=== PATIENT | male | born 1960 | race Caucasian/White ===

== ENCOUNTER 2022-09-13 07:08 | Day surgery (SDC) | payer OTHER ==
[~2022-09-13] VITALS: Ht 177.8 cm; Wt 99.8 kg
[~2022-09-13 07:08] MED LIST: ALLOPURINOL100 MG PO; ALLOPURINOL300 MG PO; ALTACE1.25 MG PO; ALTACE10 M1 PO; CLOPIDOGREL75 MG PO; FENOFIBRATE134 MG PO; FLOMAX0.4 M1 PO; KAPSPARGO SPRIN50 MG; MELOXICAM7.5 MG PO; METOPROL TAR50 MG PO; METOPROLOL TART50 MG PO; MOBIC7.5 MG PO; NIACIN ER1000 MG PO; NIACIN TR1000 MG PO; PLAVIX75 MG PO; TRIAMCINOLON0.11 EX; TRIAMCINOLON0.12 EX; TRICOR145 MG PO; ZETIA10 MG PO; ZPAK PO; [UNRECOGNIZED DRUG - OTHER] PO
[2022-09-13 09:47] VITALS: BP 99/71
== END 2022-09-13 09:42 | disposition home or self-care (01) | DRG 951 ==
LOC: ENDO 07:08 → ORM 08:45 → ENDO 09:42
PROVIDERS: ATTEND Surgery
PROC: 0DJD8ZZ Inspection of Lower Intestinal Tract, Via Natural or Artificial Opening Endoscopic (ICD-10-PCS; principal; 2022-09-13)
DX: Z12.11 Encounter for screening for malignant neoplasm of colon (principal); I10 Essential (primary) hypertension; I25.10 Atherosclerotic heart disease of native coronary artery without angina pectoris; E78.5 Hyperlipidemia, unspecified; M10.9 Gout, unspecified; Z86.010 Personal history of colon polyps; Z95.5 Presence of coronary angioplasty implant and graft

== ENCOUNTER 2024-11-06 02:42 | Emergency (ER) | payer MEDICARE ==
[~2024-11-06] VITALS: Ht 177.8 cm; Wt 85.0 kg
[2024-11-06] MEDS ORDERED: FAMOTIDINE 10MG/ML 2ML SDV IV ONE (03:00)
[2024-11-06] MEDS ORDERED: ONDANSETRON HCl 4 MG/2 ML SDV IV ONE (03:00)
[2024-11-06] MEDS ORDERED: KETOROLAC TROMETHAMINE 15 MG/ML SDV IV ONE (03:00)
[2024-11-06] MEDS ORDERED: DICYCLOMINE HCL 20 MG/2 ML VIAL IM ONE ×2 (03:00→04:25)
[2024-11-06 03:02] VITALS: BP 157/92
[2024-11-06] MEDS ORDERED: KETOROLAC TROMETHAMINE 30 MG/ML SDV IM ONE ×2 (03:10→04:25)
[2024-11-06] MEDS ORDERED: ONDANSETRON 4 MG/TAB ODT PO ONE (03:10)
[2024-11-06] MEDS ORDERED: FAMOTIDINE 20 MG/TAB PO ONE (03:10)
[2024-11-06 03:26] LABS: BASO% 0.4 % (0-3); EOS% 3.2 % (0-8); HEMATOCRIT 45.8 % (39.0-50.0); HEMOGLOBIN 15.5 g/dl (14.0-18.0); IMMATURE GRANULOCYTES 0.3 % (0.0-5.0); LYMPH% 23.8 % (15-41); MEAN CELL VOLUME 93.1 fL CALC (80.0-100.0); MEAN CORPUSCULAR HGB 31.5 pG CALC (26.0-32.0); MEAN CORPUSCULAR HGB CONC 33.8 g/dL CAL (32.0-36.0); MONO% 9.1 % (2-13); NEUT# 4.36 thou/uL (1.82-7.42); NEUT% 63.2 % (42-76); RED BLOOD COUNT 4.92 mill/uL (4.70-6.10); RED CELL DISTRI WIDTH 12.8 % (11.5-15.5)
[2024-11-06 03:31] VITALS: BP 142/99
[2024-11-06 03:39] LABS: ALBUMIN 4.4 g/dL (3.2-5.0); ALKALINE PHOSPHATASE 64 u/l (38-126); ANION GAP 11 (6-22 (CALC)); BILIRUBIN, TOTAL 0.7 mg/dL (0.2-1.3); BUN 18 mg/dL (8-23); BUN/CREATININE RATIO 15 (12-20 (CALC)); CARBON DIOXIDE 27 mmol/l (22-30); CHLORIDE 107 mmol/l (95-108); CREATININE 1.2 mg/dL (0.7-1.3); ESTIMATED GFR 67 ML/MIN (>=90 (CALC)); LIPASE 63 u/l (23-300); POTASSIUM 4.4 mmol/l (3.5-5.1); SGOT/AST 41 u/l (19-48); SODIUM 140 mmol/l (137-146); TOTAL PROTEIN 7.2 g/dL (6.3-8.2)
[2024-11-06 04:01] VITALS: BP 162/93
[2024-11-06 04:31] VITALS: BP 137/73
[2024-11-06 05:01] VITALS: BP 160/69
[2024-11-06] MEDS ORDERED: VIBRAMYCIN100 M2 PO (05:15)
[2024-11-06] MEDS ORDERED: LIDOcaine HCl 1% (Local Anesth.) 20 ML VIAL IM STA (05:19)
[2024-11-06] MEDS ORDERED: cefTRIAXone SODIUM 1 GM/VIAL SDV IM ONE (05:20)
[2024-11-06 05:45] VITALS: BP 160/69
[2024-11-06 06:25] LABS: URINE BILIRUBIN - DIPSTICK Negative (NEGATIVE); URINE BLOOD DIPSTICK Negative (NEGATIVE); URINE CLARITY Clear; URINE GLUCOSE - DIPSTICK Negative (NEGATIVE); URINE KETONE Negative (NEGATIVE); URINE LEUK ESTERASE Negative (Negative); URINE NITRITE - DIPSTICK Negative (Negative); URINE PH 5.5 (4.5-8.0); URINE PROTEIN - DIPSTICK Negative (NEG-TRACE); URINE SPECIFIC GRAVITY 1.025; URINE UROBILINOGEN - DIPSTICK 0.2 E.U./dL (0.2)
[2024-11-06 06:27] LABS: URINE COLOR Yellow
== END 2024-11-06 05:45 | disposition home or self-care (01) ==
LOC: ED 02:42
PROVIDERS: Emergency Medicine
DX: R10.13 Epigastric pain (principal); J18.9 Pneumonia, unspecified organism; I10 Essential (primary) hypertension; E78.5 Hyperlipidemia, unspecified; I25.10 Atherosclerotic heart disease of native coronary artery without angina pectoris; Z95.5 Presence of coronary angioplasty implant and graft
CPT/HCPCS: J0500; J0696